=== PATIENT | male | born 1950 | race Caucasian/White ===

== ENCOUNTER → 2018-02-07 | Outpatient (CLI) | payer MEDICARE, MEDICAID ==
[~2018-02-07] MED LIST: AMIT50TA PO; ASPI81TA50 PO; ENAL5TAB70 PO; GABA600T2 PO; HYDR25TA6 PO; IBUP-1222 PO; METH750T87 PO; OMEP-110 PO; TRAM50TA2 PO
[2018-02-07 15:51] LABS: ALANINE AMINOTRANSFERASE 30 U/L (12-78); ALBUMIN 3.9 g/dL (3.4-5.0); ANION GAP 6 mmol/L (5-15); CALCIUM 9.5 mg/dL (8.5-10.1); CHLORIDE 101 mmol/L (98-107); CREATININE 0.78 mg/dL (0.7-1.3)
[2018-02-07 15:54] LABS: ALKALINE PHOSPHATASE 76 U/L (45-117); BILIRUBIN,TOTAL 0.6 mg/dL (0.2-1.0); TOTAL PROTEIN 8.1 g/dL (6.4-8.2)
[2018-02-07 16:12] LABS: BASOPHILS # (AUTO) 0.03 x10^3/uL (0-0.1); BASOPHILS % (AUTO) 0 % (0-1); EOSINOPHILS # (AUTO) 0.17 x10^3/uL (0-0.4); EOSINOPHILS % (AUTO) 2 % (1-7); LYMPHOCYTES % (AUTO) 31 % (22-44); MEAN CORPUSCULAR HEMOGLOBIN 32.2 pg (27.5-34.5); MEAN CORPUSCULAR HGB CONC 33.7 g/dL (33.2-36.2); MEAN CORPUSCULAR VOLUME 95.8 fL (81-97); MEAN PLATELET VOLUME 9.4 fL (7.4-10.4); MONOCYTES # (AUTO) 0.59 x10^3/uL (0.2-0.8); MONOCYTES % (AUTO) 8 % (2-9); NEUTROPHILS # (AUTO) 4.37 x10^3/uL (1.8-6.8); NEUTROPHILS % (AUTO) 59 % (42-75); PLATELET COUNT 207 x10^3/uL (130-400); RED BLOOD COUNT 4.82 x10^6/uL (4.38-5.82); RED CELL DISTRIBUTION WIDTH 13.6 % (9.4-14.8)
[2018-02-07 16:13] LABS: MD NO
== END | disposition home or self-care (01) ==
LOC: CFH 12:42
PROVIDERS: ATTEND Physician Assistant
DX: B18.2 Chronic viral hepatitis C (principal)
CPT/HCPCS: 36415; 80053; 85025; 86803; 87521

== ENCOUNTER 2019-12-25 19:29 | Inpatient (IN) | payer MEDICARE, MEDICAID ==
[~2019-12-25] VITALS: Ht 188 cm; Wt 115.2 kg
[~2019-12-25 19:29] MED LIST changes: +FOLI-17 PO; -GABA600T2 PO; +GABA600T7 PO; +MULT-484 PO; +THIA100T67 PO
--- NOTE | 2019-12-25 19:49 | NUR ---
THIS IS A 69 YO MALE BIB [facility] FROM HOME, PER [facility] "OZIEL WAS CALLING 911 ALL DAY STATING THAT HE WAS DYING", UPON ARRIVAL BGL 56, [facility] GAVE D10 AND 100MG THIAMINE. LAST BGL 124 AFTER D10. +ETOH TODAY, UNKNOWN QUANTITY. PATIENT HAS SEVERELY SLURRED SPEECH, DOES NOT HAVE DENTURES AND IS DIFFICULT TO DETERMINE SPEECH. PATIENT IS A&OX3, DOES NOT KNOW WHAT DAY OR MONTH IT IS. DENIES HX DM. ALL MONITORING IN PLACE, NSR ON RECORD SYSTEMS ANALYST. PATIENT WAS 89-90& ON RA, PLACED ON 2L NC. CALL LIGHT IN REACH. ERP IN ROOM FOR EVAL. FSBS 94 HERE.
[2019-12-25] MEDS ORDERED: ALBUTEROL/IPRATROPIUM 2.5MG/0.5MG, 3 ML ONE (19:52)
[2019-12-25] MEDS ORDERED: ALBUTEROL SULFATE 2.5 MG/3 ML ONE (19:52)
[2019-12-25] MEDS ORDERED: ALBUTEROL/IPRATROPIUM 2.5MG/0.5MG, 3 ML NPPB ONE (20:00)
[2019-12-25] MEDS ORDERED: ALBUTEROL SULFATE 2.5 MG/3 ML NPPB ONE (20:00)
[2019-12-25 20:13] LABS: BASOPHILS # (AUTO) 0.01 x10^3/uL (0-0.1); BASOPHILS % (AUTO) 0 % (0-1); EOSINOPHILS # (AUTO) 0.03 x10^3/uL (0-0.4); EOSINOPHILS % (AUTO) 0 % (1-7); LYMPHOCYTES % (AUTO) 31 % (22-44); MD NO; MEAN CORPUSCULAR HEMOGLOBIN 31.3 pg (27.5-34.5); MEAN PLATELET VOLUME 8.6 fL (7.4-10.4); MONOCYTES # (AUTO) 0.36 x10^3/uL (0.2-0.8); MONOCYTES % (AUTO) 5 % (2-9); NEUTROPHILS # (AUTO) 4.33 x10^3/uL (1.8-6.8); NEUTROPHILS % (AUTO) 63 % (42-75); PLATELET COUNT 241 x10^3/uL (130-400); RED BLOOD COUNT 5.05 x10^6/uL (4.38-5.82); RED CELL DISTRIBUTION WIDTH 14.7 % (9.4-14.8)
[2019-12-25 20:22] LABS: ANION GAP 13 mmol/L (5-15); CALCIUM 9.1 mg/dL (8.5-10.1); CHLORIDE 103 mmol/L (98-107); CREATININE 0.93 mg/dL (0.7-1.3)
--- NOTE | 2019-12-25 20:25 | NUR ---
LUNCH RN: BREATHING TREATMENT COMPLETED. BLOOD SUGAR CHECKED SHOWING 75, TRENDING DOWN. EP TO BE UPDATED.
[2019-12-25] MEDS ORDERED: methylPREDNISolone SOD SUCC 125 MG/2 ML ONE (20:40)
[2019-12-25] MEDS ORDERED: DEXTROSE 10% 250 ML IV ONE (21:00)
[2019-12-25] MEDS ORDERED: methylPREDNISolone SOD SUCC 125 MG/2 ML IVPush ONE (21:00)
--- NOTE | 2019-12-25 21:00 | NUR ---
ATTEMPTED TO GET PATIENT FOOD, PATIENT STATES "I DON'T WANT ANY FUCKING FOOD, IT DOESN'T EVEN MATTER"
--- NOTE | 2019-12-25 21:07 | NUR ---
PATIENT MEDICATED PER EMAR. NEW PIV PLACED [facility] PIV WAS IN AC AND NOT INFUSING D10
--- NOTE | 2019-12-25 21:09 | NUR ---
PATIENT IS ANGRY AND UNCOOPERATIVE, STATING "YOU'RE NOT HELPING ME YOU FUCKING BITCH. I'M DYING AND NOBODY IS DOING ANYTHING". PATIENT REPEATEDLY CALLING THIS RN "FUCKING BITCH", EDUCATED PATIENT THAT HE NEEDS TO BE RESPECTFUL, AND EDUCATED PATIENT ON PLAN OF CARE AND TREATMENTS GIVEN.
--- NOTE | 2019-12-25 21:46 | NUR ---
D10 INFUSION COMPLETE, FSBS 119, ERP AWARE
--- NOTE | 2019-12-25 21:50 | NUR ---
ERP IN ROOM FOR RE-EVAL
--- NOTE | 2019-12-25 22:00 | NUR ---
PATIENT TO BE ADMITTED, GIVEN FOOD AND INSTRUCTED THAT HE NEEDS TO EAT TO KEEP BGL WDL
[2019-12-25] MEDS ORDERED: GABAPENTIN 300 MG CAPSULE ONE (22:19)
--- NOTE | 2019-12-25 22:23 | NUR ---
PATIENT MEDICATED PER EMAR, TOLERATED WELL
[2019-12-25] MEDS ORDERED: GABAPENTIN 300 MG CAPSULE PO ONE (22:30)
[2019-12-25] MEDS ORDERED: MAGNESIUM SULFATE 1 GM, THIAMINE 100 MG, FOLIC ACID 1 MG, MVI ADULT 10 ML in SODIUM CHL... IV ONE (22:30)
--- NOTE | 2019-12-25 22:31 | NUR ---
ROSA, ADMITTING ASSEMBLER PING PONG TABLE TO ROOM FOR EVAL
[2019-12-25] MEDS ORDERED: ONDANSETRON ODT 4 MG PO PRN (23:00)
[2019-12-25] MEDS ORDERED: BISACODYL 10 MG SUPP PR PRN (23:00)
[2019-12-25] MEDS ORDERED: POLYETHYLENE GLYCOL 17 GM PACKET PO PRN (23:00)
[2019-12-25] MEDS ORDERED: ACETAMINOPHEN 325 MG TABLET PO PRN (23:00)
[2019-12-25] MEDS: GABAPENTIN 300 MG CAPSULE PO SCH (23:00)
--- NOTE | 2019-12-25 23:29 | NUR ---
REPORT GIVEN TO S[facility]A GUERRERO. PLAN OF CARE DISCUSSED. IVF INFUSING AT TIME OF TRANSFER
[2019-12-26] MEDS ORDERED: ALBUTEROL HFA 90 MCG/SPRAY INH PRN
[2019-12-26 00:21] VITALS: BP 138/82
[2019-12-26 01:44] VITALS: BP 138/82
[2019-12-26] MEDS: ALBUTEROL HFA 90 MCG/SPRAY INH SCH ×4 (05:36→21:00)
[2019-12-26 05:45] LABS: BASOPHILS % (AUTO) 0 % (0-1); EOSINOPHILS % (AUTO) 0 % (1-7); LYMPHOCYTES # (AUTO) 0.67 x10^3/uL (1-3.4); LYMPHOCYTES % (AUTO) 11 % (22-44); MD NO; MEAN CORPUSCULAR HEMOGLOBIN 31.3 pg (27.5-34.5); MEAN CORPUSCULAR HGB CONC 32.8 g/dL (33.2-36.2); MEAN PLATELET VOLUME 8.7 fL (7.4-10.4); MONOCYTES # (AUTO) 0.01 x10^3/uL (0.2-0.8); MONOCYTES % (AUTO) 0 % (2-9); NEUTROPHILS # (AUTO) 5.35 x10^3/uL (1.8-6.8); NEUTROPHILS % (AUTO) 89 % (42-75); PLATELET COUNT 223 x10^3/uL (130-400); RED BLOOD COUNT 4.69 x10^6/uL (4.38-5.82); RED CELL DISTRIBUTION WIDTH 14.4 % (9.4-14.8)
[2019-12-26 06:05] LABS: CHLORIDE 105 mmol/L (98-107)
[2019-12-26 06:09] LABS: ANION GAP 13 mmol/L (5-15); CALCIUM 9.3 mg/dL (8.5-10.1); CREATININE 0.63 mg/dL (0.7-1.3)
[2019-12-26 07:01] VITALS: BP 124/75
[2019-12-26] MEDS: OMEPRAZOLE 20 MG CAPSULE.DR PO SCH (08:01)
[2019-12-26] MEDS: GABAPENTIN 300 MG CAPSULE PO SCH ×3 (08:01→21:47)
[2019-12-26] MEDS: ASPIRIN 81 MG TABLET EC PO SCH (08:02)
[2019-12-26] MEDS: MULTIVITAMINS/MINERALS TABLET PO SCH (08:02)
[2019-12-26] MEDS: THIAMINE 100MG TABLET PO SCH (08:02)
[2019-12-26] MEDS: SENNA/DOCUSATE TABLET PO SCH ×2 (08:02→08:04)
[2019-12-26] MEDS: FOLIC ACID 1 MG TABLET PO SCH (08:02)
[2019-12-26 12:26] VITALS: BP 147/81
[2019-12-26] MEDS ORDERED: LORazepam 2 MG/ML, 1ML IV PRN ×5 (16:00)
[2019-12-26] MEDS ORDERED: LORazepam 0.5MG TABLET PO PRN (16:00)
[2019-12-26] MEDS ORDERED: LORazepam 1MG TABLET PO PRN ×3 (16:00)
[2019-12-26] MEDS: HEPARIN 5,000 UNITS/ML, 1ML SQ SCH (17:03)
[2019-12-26 18:35] VITALS: BP 143/84
[2019-12-27] MEDS: HEPARIN 5,000 UNITS/ML, 1ML SQ SCH ×3 (00:07→16:44)
[2019-12-27 03:41] VITALS: BP 130/83
[2019-12-27] MEDS: ALBUTEROL HFA 90 MCG/SPRAY INH SCH ×3 (06:00→16:45)
[2019-12-27 07:16] VITALS: BP 120/76
[2019-12-27] MEDS: FOLIC ACID 1 MG TABLET PO SCH (07:55)
[2019-12-27] MEDS: MULTIVITAMINS/MINERALS TABLET PO SCH (07:55)
[2019-12-27] MEDS: ASPIRIN 81 MG TABLET EC PO SCH (07:55)
[2019-12-27] MEDS: THIAMINE 100MG TABLET PO SCH (07:56)
[2019-12-27] MEDS: OMEPRAZOLE 20 MG CAPSULE.DR PO SCH (07:56)
[2019-12-27] MEDS: GABAPENTIN 300 MG CAPSULE PO SCH ×2 (07:56→16:45)
[2019-12-27] MEDS: SENNA/DOCUSATE TABLET PO SCH (08:02)
[2019-12-27 13:06] VITALS: BP 149/85
[2019-12-27] MEDS ORDERED: PRED20TA PO (16:02)
== END 2019-12-27 17:58 | disposition home or self-care (01) | DRG 896 ==
LOC: ED 20:55 → EDIP 22:50 → 3N 12-26 00:13
PROVIDERS: ADMIT Internal Medicine; ATTEND Family Medicine
DX: F10.229 Alcohol dependence with intoxication, unspecified (principal); J96.01 Acute respiratory failure with hypoxia; J44.1 Chronic obstructive pulmonary disease with (acute) exacerbation; I10 Essential (primary) hypertension; F17.210 Nicotine dependence, cigarettes, uncomplicated; E11.649 Type 2 diabetes mellitus with hypoglycemia without coma; E11.42 Type 2 diabetes mellitus with diabetic polyneuropathy; K21.9 Gastro-esophageal reflux disease without esophagitis; Z66 Do not resuscitate; Z86.73 Personal history of transient ischemic attack (TIA), and cerebral infarction without residual deficits; Y90.1 Blood alcohol level of 20-39 mg/100 ml
CPT/HCPCS: 71045; 80048; 80307; 82962; 85025; 96374; 99285; G0378; J1644; J3411; J3475; J7613; J2930; J7030; J7512